=== PATIENT | female | born 1965 | race Caucasian/White ===

== ENCOUNTER → 2024-07-25 | Outpatient (CLI) | payer BC, SELFPAY ==
[2024-07-25 08:49] LABS: Cardiac Risk Estimate 3.2 RATIO (3.7-5.6); Cholesterol 207 mg/dL (132-200); Free T4 (Free Thyroxine) 1.49 ng/dL (0.89-1.76); HDL Cholesterol 64 mg/dL (40-60); LDL Cholesterol,Calculated 123 mg/dL (0-130); Thyroid Stimulating Hormone 0.76 uIU/mL (0.55-4.78); Triglycerides 101 mg/dL (30-150)
== END | disposition home or self-care (01) ==
PROVIDERS: PCP Family Medicine; Referring Provider Family Medicine; Visit Provider Family Medicine
DX: E03.9 Hypothyroidism, unspecified (principal); E78.2 Mixed hyperlipidemia
CPT/HCPCS: 36415; 80061; 84439; 84443

== ENCOUNTER 2024-09-15 05:35 | Day surgery (SDC) | payer BC, SELFPAY ==
[2024-09-12 06:51] VITALS: BMI 25.8
[2024-09-12 09:00] LABS: Basophils % (Auto) 1 % (0-2.5); Eosinophils # (Auto) 0.2 Thou/mm3 (0.0-0.5); Eosinophils % (Auto) 3 % (0-10); Hematocrit 41.2 % (36.0-46.0); Hemoglobin 13.7 g/dL (12.0-16.0); Immature Granulocytes % (Auto) 0 % (0-0); Immature Granulocytes Auto 0.01 Thou/mm3 (0.00-0.00); Lymphocytes # (Auto) 2.4 Thou/mm3 (1.0-4.8); Lymphocytes % (Auto) 45 % (10-50); Mean Corpuscular HGB Conc 33.3 g/dl (31.0-37.0); Mean Corpuscular Hemoglobin 31.6 pg (25.0-35.0); Mean Corpuscular Volume 95 fL (80-100); Monocytes # (Auto) 0.4 Thou/mm3 (0.0-0.8); Monocytes % (Auto) 8 % (0-12); Neutrophils # (Auto) 2.3 Thou/mm3 (1.8-7.7); Neutrophils % (Auto) 43 % (37-80); Nucleated Red Blood Cell % 0 /100 WBC (0); Platelet Count 309 Thou/mm3 (140-440); RDW Standard Deviation 42.7 fL (36.4-46.3); Red Blood Count 4.34 Miln/mm3 (4.00-5.20); White Blood Count 5.3 Thou/mm3 (3.6-11.0)
[2024-09-12 09:09] LABS: Alanine Aminotransferase 16 U/L (10-49); Albumin, Serum 4.8 gm/dL (3.5-5.0); Albumin/Globulin Ratio 1.9 (1.2-2.2); Alkaline Phosphatase 79 U/L (46-116); Anion Gap 8 (7-16); Aspartate Amino Transferase 20 U/L (0-34); BUN/Creatinine Ratio 13 Ratio (12-20); Bilirubin,Total 0.5 mg/dL (0.3-1.2); Blood Urea Nitrogen 13 mg/dL (9-23); Calcium 9.9 mg/dL (8.3-10.6); Calcium (Corrected) 9.9 mg/dL (8.5-10.1); Carbon Dioxide 26.9 mMol/L (20.0-31.0); Chloride 104 mMol/L (98-107); Estimated Creatinine Clearance 65.5 mL/min (>60); Globulin 2.5 gm/dL (2.3-3.5); Glucose 94 mg/dL (74-106); Osmolality,Calculated 277 (275-295); Potassium 4.3 mMol/L (3.4-5.1); Sodium 139 mMol/L (136-145); Total Protein 7.3 gm/dL (5.7-8.2); eGFR > 60 See Note
[2024-09-12 09:18] LABS: Partial Thromboplastin Time 28.7 Seconds (22.0-36.0); Prothrombin Time 11.2 Seconds (9.0-12.2)
--- NOTE | 2024-09-13 18:51 | ESHP_ITS ---
RE: SAMUEL DUNHAM : 1965 DATE OF ADMISSION: 09/15/2024 DATE OF SURGERY: 09/15/2024 CHIEF COMPLAINT: Pain right thumb. HISTORY OF PRESENT ILLNESS: The patient is a 59-year-old who has developed triggering of the right thumb. We did one cortisone injection. It worked for a while and it has recurred. We are taking her back for a right trigger thumb release. PAST MEDICAL HISTORY: Reviewed. BLOOD TRANSFUSIONS: Yes. OPERATIONS: Include, 1. Hysterectomy. 2. Carpal tunnel release, right and left hand. 3. Tummy tuck. 4. Bladder sling. 5. LASIK for eyes. ALLERGIES: ULTRAM. MEDICATIONS: Levothyroxine. MAJOR MEDICAL ILLNESSES: Denies heart disease, heart attack, heart murmur, hypertension, gout, kidney disease, liver disease, hepatitis, yellow jaundice, bleeding disorder, diabetes, valley fever, depression, ulcer, or cancer. FAMILY HISTORY: Positive for leukemia. REVIEW OF SYSTEMS: Weight is stable. Appetite is good. Energy level is good. Denies chest pain, shortness of breath, orthopnea, paroxysmal nocturnal dyspnea, dyspnea on exertion, productive cough, hemoptysis. No nausea, vomiting, diarrhea, or constipation. Denies dysuria or prior hematuria. Denies strokes, seizures, syncopal episodes. No change in moles or rashes. The patient does not smoke. Does not drink. Mammogram in . PHYSICAL EXAMINATION: GENERAL: Shows a well developed, well nourished woman who appears to be younger than her stated age. She is alert and oriented. Moves her head side to side. elevates her chin without pain. CHEST: Clear to percussion and auscultation. HEART: Regular rate and rhythm. No murmurs. No gallops. ABDOMEN: Soft, nontender. No masses. No organomegaly. BREASTS, RECTAL, AND GENITAL: Deferred. EXTREMITIES: Exam of the extremities shows that she has pain over the metacarpophalangeal joint of the right thumb. She has pain to palpation, palpable nodule, triggering present. ASSESSMENT: Right trigger thumb. PLAN: Release of right trigger thumb. The risks of the procedure were explained to the patient including the possibility of infection, painful scar, recurrence, during anesthesia. DT: 16:26:28 TT: 18:40:00 Ref: [id number] - TID: [id number]
[2024-09-15 06:17] VITALS: BP 121/73; PULSE 57; RESP 14; TEMP 36.8; O2SAT 97; BMI 25.8
[2024-09-15] MEDS: RINGERS LACTATED 1000 ML 1,000 ML 20 ML IV (06:24)
--- NOTE | 2024-09-15 07:30 | CHAP ---
Patient expressed gratitude for prayer before her procedure.
[2024-09-15 09:00] VITALS: BP 119/80; BP 121/80; PULSE 54; PULSE 61; RESP 12; RESP 14; TEMP 36.1; O2SAT 100
--- NOTE | 2024-09-15 09:00 | SUR.PHASEII ---
0900 Patient arrived to recovery awake and alert, resting comfortably in [facility], breathing unlabored, vital signs stable, denies pain, dressing intact to right wrist; fluffs, gauze, kerlix roll, bias roll, silk tape, stockinette, no bleeding noted, lung sounds clear upon auscultation, left radial pulses present when palpated, right brachial pulses present when palpated, report received from Lopez HOBBS and Dr. Khan
[2024-09-15 09:05] VITALS: BP 118/75; PULSE 55; RESP 13; O2SAT 100
--- NOTE | 2024-09-15 09:07 | PD.SUROPNT ---
Date of Procedure 09/15/24 Pre Op Diagnosis Right trigger thumb Post Op Diagnosis Right trigger thumb Procedure Release of A1 tamra right trigger thumb Findings Thick A1 tamra right thumb Procedure Description Patient was taken the operating room and after propofol fall and carefully preparing the finger it was injected with 10 cc of 2% lidocaine without epinephrine a digital nerve block was carried out. As the propofol became metabolized we found that she had a lot of movement of her right upper extremity. At that point I asked anesthesia to put her back under general anesthetic so we could complete the procedure without any movement of her thumb. Transverse incision was made over the metacarpal phalangeal joint. Using careful dissection the ulnar and radial digital nerves were identified and protected. The A1 tamra was thick it was sharply incised with a #15 blade. And then we had her actively flex and extend the IP joint of her thumb. She was able to do so without any triggering. We had her look at her thumb as she was doing it and she was quite pleased and so was I. The wound was copious irrigated with saline and Betadine solution the tourniquet was deflated no significant bleeding the wound was closed with 5-0 nylon using a vertical mattress technique. Some additional 2% lidocaine with epinephrine was then gently injected superficially an inch and a half proximal to the wound Bulky dressing was applied using Dakin's soaked Kerlix sponges over Bactroban ointment ointment dry Kerlix sponges and 4 inch cut bias covered with net dressing. Sponge needle counts were correct. She was taken recovery met eventfully Anesthesia MAC and regional Drains 0 Implants None Pathology / specimen None IVF Infused 600 Urine Output 0 Estimated Blood Loss 7 Condition Stable Disposition PACU Surgeon J Carlos Cowart MD Surgical Staff Operation Date: 09/15/24 07:30 Case Staff Anesthesiologist: Antonio Khan
[2024-09-15 09:10] VITALS: BP 118/78; PULSE 55; RESP 14; O2SAT 100
[2024-09-15 09:15] VITALS: BP 121/77; PULSE 59; RESP 14; O2SAT 99
[2024-09-15 09:30] VITALS: BP 133/79; PULSE 63; RESP 18; TEMP 36.3; O2SAT 97
--- NOTE | 2024-09-15 09:48 | SUR.PHASEII ---
0948 Patient meets discharge criteria from recovery, awake and alert, breathing unlabored, vital signs stable, denies pain, dressing intact; no bleeding noted, patient drinking water; denies nausea, patient assisted with dressing into her clothing by her , discharge instructions given to patient and patients , signed discharge instructions. Patient given all her belongings prior to discharge, transported via wheelchair and left in a private vehicle.
== END 2024-09-15 09:48 | disposition home or self-care (01) ==
PROVIDERS: PCP Family Medicine; Referring Provider Orthopaedic Surgery; Visit Provider Orthopaedic Surgery
PROC: (CPT 26055; principal; 2024-09-15 07:30)
DX: M65.311 Trigger thumb, right thumb (principal); E03.9 Hypothyroidism, unspecified
CPT/HCPCS: 26055; 36415; 80053; 85025; 85610; 85730; A4217; A4649; J0690; J2250; J2704; J2795; J3010; J3490; J7120; A9270

== ENCOUNTER → 2025-01-16 | Outpatient (CLI) | payer BC, SELFPAY ==
[2025-01-16 08:05] LABS: Collection Type, Urine Clean Catch
[2025-01-16 08:29] LABS: Basophils # (Auto) 0.1 Thou/mm3 (0.0-0.2); Basophils % (Auto) 1 % (0-2.5); Eosinophils # (Auto) 0.2 Thou/mm3 (0.0-0.5); Eosinophils % (Auto) 3 % (0-10); Hemoglobin 13.8 g/dL (12.0-16.0); Immature Granulocytes % (Auto) 0 % (0-0); Immature Granulocytes Auto 0.01 Thou/mm3 (0.00-0.00); Lymphocytes # (Auto) 2.5 Thou/mm3 (1.0-4.8); Lymphocytes % (Auto) 48 % (10-50); Mean Corpuscular HGB Conc 34.5 g/dl (31.0-37.0); Mean Corpuscular Hemoglobin 32.5 pg (25.0-35.0); Mean Corpuscular Volume 94 fL (80-100); Monocytes # (Auto) 0.4 Thou/mm3 (0.0-0.8); Monocytes % (Auto) 7 % (0-12); Neutrophils # (Auto) 2.2 Thou/mm3 (1.8-7.7); Neutrophils % (Auto) 41 % (37-80); Nucleated Red Blood Cell % 0 /100 WBC (0); Platelet Count 310 Thou/mm3 (140-440); RDW Standard Deviation 43.6 fL (36.4-46.3); Red Blood Count 4.24 Miln/mm3 (4.00-5.20); White Blood Count 5.3 Thou/mm3 (3.6-11.0)
[2025-01-16 08:45] LABS: Alanine Aminotransferase 26 U/L (10-49); Albumin, Serum 4.8 gm/dL (3.5-5.0); Albumin/Globulin Ratio 2.1 (1.2-2.2); Alkaline Phosphatase 80 U/L (46-116); Anion Gap 12 (7-16); Aspartate Amino Transferase 28 U/L (0-34); BUN/Creatinine Ratio 19 Ratio (12-20); Bilirubin,Total 0.6 mg/dL (0.3-1.2); Blood Urea Nitrogen 19 mg/dL (9-23); Calcium 9.6 mg/dL (8.3-10.6); Calcium (Corrected) 9.6 mg/dL (8.5-10.1); Carbon Dioxide 26.7 mMol/L (20.0-31.0); Cardiac Risk Estimate 2.7 RATIO (3.7-5.6); Chloride 106 mMol/L (98-107); Cholesterol 199 mg/dL (132-200); Free T4 (Free Thyroxine) 1.41 ng/dL (0.89-1.76); Globulin 2.3 gm/dL (2.3-3.5); Glucose 92 mg/dL (74-106); HDL Cholesterol 74 mg/dL (40-60); LDL Cholesterol,Calculated 113 mg/dL (0-130); Osmolality,Calculated 290 (275-295); Potassium 4.1 mMol/L (3.4-5.1); Sodium 145 mMol/L (136-145); Thyroid Stimulating Hormone 4.25 uIU/mL (0.55-4.78); Total Protein 7.1 gm/dL (5.7-8.2); Triglycerides 60 mg/dL (30-150); eGFR > 60 See Note
[2025-01-16 08:54] LABS: Bilirubin,Urine Negative (Negative); Blood,Urine Negative (Negative); Clarity,Urine Clear (Clear/Hazy); Color,Urine Lt-Yellow (Lt Yel-Yel); Glucose, Urine Negative (Negative); Ketones,Urine Negative (Negative); Leukocyte Esterase,Urine Positive (Negative); Nitrite,Urine Negative (Negative); Protein,Urine Negative (Neg - Trace); RBC,Urine 2 /hpf (0-3); Specific Gravity,Urine 1.016 (1.001-1.035); Squamous Epithelial Cell,Urine 2 /hpf (0-5); Urobilinogen,Urine Negative mg/dL (0.0-1.0); WBC,Urine 1 /hpf (0-5)
== END | disposition home or self-care (01) ==
LOC: COPL 06:41
PROVIDERS: PCP Family Medicine; Referring Provider Family Medicine; Visit Provider Family Medicine
DX: Z00.00 Encounter for general adult medical examination without abnormal findings (principal); E03.9 Hypothyroidism, unspecified; E78.00 Pure hypercholesterolemia, unspecified
CPT/HCPCS: 36415; 80053; 80061; 81001; 84439; 84443; 85025

== ENCOUNTER → 2025-03-26 | Outpatient (CLI) | payer BC, SELFPAY ==
--- NOTE | 2025-03-26 | XR_ITS ---
Examination: Bilateral knees single view TECHNIQUE: AP bilateral knees standing single view Date and time: March 26, 2025 0722 hours INDICATION: Left knee pain beginning 8 days ago. FINDINGS: Moderate osteopenia. Mild to moderate narrowing medial joint space left knee Mild narrowing medial joint space right knee No fracture or dislocation IMPRESSION: Mild to moderate narrowing medial joint space left knee
--- NOTE | 2025-03-26 | XR_ITS ---
Examination: Left knee 4 views TECHNIQUE: AP oblique lateral axial left knee 4 views Date and time: March 26, 2025 0725 hours INDICATIONS: Left knee pain beginning 8 days ago. FINDINGS: [id number] narrowing medial joint space left knee Mild osteoarthritis patellofemoral joint Small knee effusion. No acute fracture No patellar dislocation IMPRESSION: [id number] narrowing medial joint space Mild osteoarthritis patellofemoral joint No fracture
== END | disposition home or self-care (01) ==
LOC: CDIM 06:42
PROVIDERS: PCP Family Medicine; Referring Provider Orthopaedic Surgery; Visit Provider Orthopaedic Surgery
DX: M17.12 Unilateral primary osteoarthritis, left knee (principal); M25.862 Other specified joint disorders, left knee
CPT/HCPCS: 73560; 73564; 73565

== ENCOUNTER → 2025-07-23 | Outpatient (CLI) | payer BC, SELFPAY ==
[2025-07-23 08:47] LABS: Free T4 (Free Thyroxine) 1.39 ng/dL (0.89-1.76); Thyroid Stimulating Hormone 2.70 uIU/mL (0.55-4.78)
== END | disposition home or self-care (01) ==
LOC: COPL 06:58
PROVIDERS: PCP Family Medicine; Referring Provider Family Medicine; Visit Provider Family Medicine
DX: E03.9 Hypothyroidism, unspecified (principal)
CPT/HCPCS: 36415; 84439; 84443